=== PATIENT | female | born 1960 | race Asian ===

== ENCOUNTER → 2022-06-05 10:24 | Outpatient (CLI) | payer OTHER, SELFPAY ==
--- NOTE | ~2022-06-05 | DEXA_ITS ---
Bone Density Report Name: KOTA ALBA Age: 61 Sex: Female Ethnicity: Date of : 1960 Indication: postmenopausal; screening for osteoporosis; Referring Provider: Jeff, Bruno Study: Bone densitometry was performed. Exam Date: June 05, 2022 Accession number: [id number] Bone Density: Region BMD T-score Z-score Classification AP Spine (L1-L4) 0.913 -1.2 0.5 Osteopenia Femoral Neck (Left) 0.798 -0.5 1.0 Normal Total Hip (Left) 0.936 0.0 1.1 Normal Femoral Neck (Right) 0.756 -0.8 0.6 Normal Total Hip (Right) 0.885 -0.5 0.7 Normal Total Hip Mean 0.911 -0.3 0.9 Normal World Health Organization criteria for BMD impression classify patients as: Normal (T-score at or above -1.0), Osteopenia (T-score between -1.0 and -2.5), or Osteoporosis (T-score at or below -2.5). 10-year Fracture Risk(1): Major Osteoporotic Fracture 4.0% Hip Fracture 0.2% Reported Risk Factors: [place] (), Neck BMD=0.756, BMI=29.6 (1) FRAX(R) Version 3.08. Fracture probability calculated for an untreated patient. Fracture probability may be lower if the patient has received treatment. Clinical Information Provided by Patient: Has used the following medications: Vitamin D, occasional MTV Patient maximum height was 62 Menopause Age: 48 No regular weight bearing exercise Does not regularly consume dairy products Drinks caffeinated beverages Onset of menses at age 15 Number of children 2 Impression: The patient has low bone mass, based on the Total Spine T-score. The patient has an estimated ten-year risk of hip fracture of 0.2% and an estimated ten-year risk of major fracture of 4%, based on the WHO FRAX algorithm. Discussion: BONE DENSITY IS LOW AT ONE OR MORE SKELETAL SITES. This patient's lowest T-score is low at one or more skeletal sites. It meets the World Health Organization's (WHO) criteria for ?low bone mass? (T-score between -1.0 and -2.5). The patient's 10-year risk of fracture as calculated by FRAX is less than the threshold where pharmacological therapy is recommended by the National Osteoporosis Foundation (NOF). However, all treatment decisions require clinical judgment and consideration of individual patient factors, including patient preferences, comorbidities, previous drug use, risk factors not captured in the FRAX model (e.g., frailty, falls, vitamin D deficiency, increased bone turnover, interval significant decline in bone density) and possible under or overestimation of fracture risk by FRAX. The patient should follow a healthful lifestyle (good nutrition with adequate calcium and vitamin D, and appropriate weight-bearing exercise). Follow-Up: Consider repeating this study in 2 to 3 years to reassess this patient's status, or sooner if there is some new clinical indication.
--- NOTE | ~2022-06-05 | MM_ITS ---
EXAMINATION: MM screening betty BI w joanne HISTORY: Screening mammogram TECHNIQUE: Craniocaudal and mediolateral oblique 3-D tomosynthesis images were obtained and synthetic 2-D images were generated. CAD analysis was submitted and interpreted. COMPARISON: No prior mammogram is available for comparison at this institution. BREAST PARENCHYMAL COMPOSITION: There are scattered areas of fibroglandular density. FINDINGS: No suspicious mass, calcification, or architectural distortion are identified in either yamila ast to suggest malignancy. IMPRESSION: 1. No mammographic evidence of malignancy. 2. Recommend routine screening mammography in one year. 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
== END ==
PROVIDERS: PCP Internal Medicine; Visit Provider Internal Medicine
DX: Z12.31 Encounter for screening mammogram for malignant neoplasm of breast (principal); Z78.0 Asymptomatic menopausal state; M81.0 Age-related osteoporosis without current pathological fracture; M85.88 Other specified disorders of bone density and structure, other site
CPT/HCPCS: 77063; 77067; 77080

== ENCOUNTER → 2023-02-03 10:05 | Outpatient (CLI) | payer OTHER, SELFPAY ==
--- NOTE | ~2023-02-03 | US_ITS ---
Thyroid ultrasound. Clinical History: Hypothyroidism Findings: Real-time sonography of the thyroid gland was performed. The right lobe measures 5.0 x 1.8 x 1.7 cm. The left lobe measures 4.8 x 1.4 x 1.4 cm. The isthmus is 3 mm in AP diameter. No thyroid nodule identified. Impression: No significant abnormality seen. Reviewed, dictated and finalized at location . Impression: No significant abnormality seen.
== END ==
PROVIDERS: PCP Internal Medicine; Visit Provider Internal Medicine
DX: E03.9 Hypothyroidism, unspecified (principal)
CPT/HCPCS: 76536

== ENCOUNTER 2023-06-01 02:23 | Day surgery (SDC) | payer OTHER, SELFPAY ==
[2023-05-15 09:24] VITALS: BMI 26.4
--- NOTE | 2023-05-29 08:53 | SUR.PREOP ---
Patient called regarding upcoming procedure. Message left on patient's voicemail regarding preop instructions, appointment times, and procedure prep.
--- NOTE | 2023-05-29 14:26 | PM.HPGS ---
History of Present Illness History of Present Illness Consent: Risks, benefits, and alternatives have been discussed and questions answered. Patient agrees to proceed with procedure. Chief complaint: HX colon cancer Narrative: Breanna Galan is a 62 year old female Referred for colon cancer screening. She has a history of colon cancer which had been resected several years ago. Review of Systems Review of Systems: All systems reviewed & are unremarkable except as noted in HPI and below PMFSH Social History Social History Living arrangements: with family Spiritual care concerns: No Meds Home Medications and Allergies Home Medications Medication Instructions Recorded Confirmed Type aspirin 81 mg capsule 81 mg PO DAILY 05/15/23 06/01/23 History dapagliflozin propanediol 10 mg 10 mg PO DAILY 05/15/23 06/01/23 History tablet (Farxiga) ferrous sulfate 18 mg PO DAILY 05/15/23 06/01/23 History gabapentin 300 mg tablet 300 mg PO TID 05/15/23 06/01/23 History icosapent ethyl 1 gram capsule 2 g PO BID 05/15/23 06/01/23 History (Vascepa) lisinopril 10 mg tablet 10 mg PO DAILY 05/15/23 06/01/23 History metformin 500 mg tablet,extended 500 mg PO BID 05/15/23 06/01/23 History release 24 hr pravastatin 40 mg tablet 40 mg PO DAILY 05/15/23 06/01/23 History semaglutide 0.25 mg or 0.5 mg (2 0.5 mg subcut WEEKLY 05/15/23 06/01/23 History mg/3 mL) subcutaneous pen injector (Ozempic) Allergies Allergy/AdvReac Type Severity Reaction Status Date / Time No Known Allergies Allergy Verified 06/01/23 06:46 Exam Resp: Auscultation: clear to auscultation bilaterally Cardio: Rate: regular rate Rhythm: regular rhythm GI: GI Palp: Yes Soft to palpation and No Tenderness to palpation present (GI) Assessment and Plan Assessment and plan (1) Colon cancer screening: Code(s): Z12.11 - Encounter for screening for malignant neoplasm of colon Status: Acute Assessment and Plan: Colonoscopy with possible biopsy or polypectomy or cautery or injection of substances.
[2023-06-01 06:39] VITALS: BP 133/86; PULSE 65; RESP 16; TEMP 36.1; O2SAT 100; BMI 26.6
[2023-06-01] MEDS: LACTATED RINGERS 1,000 ML 150 ML IV CONT (07:04)
[2023-06-01 07:06] LABS: Glucose Point of Care 126 mg/dl (65-105)
--- NOTE | 2023-06-01 07:25 | P.PNAN_ITS ---
Anes - Initial Pre Proc Eval Procedure: Operation Date: 06/01/23 08:00 Proposed Procedures p Colonoscopy - William Rivas MD Date/Time: 06/01/23 07:25 Surgeon: William Rivas MD Pre Op Diagnosis: HX colon cancer Patient Data Age: 62 Gender: F Height: 1.65 m Weight: 72.5 kg Last Vital Signs Temp 96.9 F L 06/01/23 06:39 Pulse 65 06/01/23 06:39 Resp 16 06/01/23 06:39 BP 133/86 06/01/23 06:39 Pulse Ox 100 06/01/23 06:39 O2 Del Method Room Air 06/01/23 06:39 Allergies Allergy/AdvReac Type Severity Reaction Status Date / Time No Known Allergies Allergy Verified 06/01/23 06:46 Home Medications Medication Instructions Recorded Confirmed Type aspirin 81 mg capsule 81 mg PO DAILY 05/15/23 06/01/23 History dapagliflozin propanediol 10 mg 10 mg PO DAILY 05/15/23 06/01/23 History tablet (Farxiga) ferrous sulfate 18 mg PO DAILY 05/15/23 06/01/23 History gabapentin 300 mg tablet 300 mg PO TID 05/15/23 06/01/23 History icosapent ethyl 1 gram capsule 2 g PO BID 05/15/23 06/01/23 History (Vascepa) lisinopril 10 mg tablet 10 mg PO DAILY 05/15/23 06/01/23 History metformin 500 mg tablet,extended 500 mg PO BID 05/15/23 06/01/23 History release 24 hr pravastatin 40 mg tablet 40 mg PO DAILY 05/15/23 06/01/23 History semaglutide 0.25 mg or 0.5 mg (2 0.5 mg subcut WEEKLY 05/15/23 06/01/23 History mg/3 mL) subcutaneous pen injector (Ozempic) Laboratory Tests 06/01/23 06:55 POC Capillary Glucose 126 H mg/dl (65-105) Patient hx anesthesia problems: none Family hx anesthesia problems: none Results Review: All pre-operative results and documents have been reviewed as part of the pre- operative evaluation. PMFSH Social History Social History Living arrangements: with family Spiritual care concerns: No Anes - Eval Final PreProcedure Day of Procedure 06/01/23 07:25 Patient weight: normal Heart: regular rate and rhythm Lungs: clear to auscultation Airway: Mallampati scale class II Neurological: alert and oriented Last oral intake: >/= 8 hours ASA classification: III Emergent: no Anesthetic plan: proceed Anesthesia type and monitoring: general GIVS and standard monitoring Results Review: All pre-operative results and documents have been reviewed as part of the pre- operative evaluation. Informed Consent: The patient's anesthetic plan and its attendant risks and benefits were discussed with the patient/family/POA. Questions were solicited and answers provided to the satisfaction of the patient/family/POA.
[2023-06-01 08:10] VITALS: BP 82/53; PULSE 69; RESP 20; O2SAT 99
[2023-06-01 08:20] VITALS: BP 92/92; PULSE 66; RESP 19; O2SAT 97
[2023-06-01 08:30] VITALS: BP 98/61; PULSE 60; RESP 19; O2SAT 99
== END 2023-06-01 08:41 | disposition home or self-care (01) ==
PROVIDERS: PCP Internal Medicine; Visit Provider Internal Medicine Gastroenterology
PROC: 0DJD8ZZ Inspection of Lower Intestinal Tract, Via Natural or Artificial Opening Endoscopic (ICD-10-PCS; CPT 45378; principal; 2023-06-01 08:00)
DX: Z12.11 Encounter for screening for malignant neoplasm of colon (principal); Z85.038 Personal history of other malignant neoplasm of large intestine; K63.89 Other specified diseases of intestine
CPT/HCPCS: 45378; 82948; J2704; J7120

== ENCOUNTER → 2023-06-08 09:41 | Outpatient (CLI) | payer OTHER, SELFPAY ==
--- NOTE | ~2023-06-08 | DEXA_ITS ---
Bone Density Report Name: KOTA ALBA Age: 62 Sex: Female Ethnicity: Date of : 1960 Indication: osteopenia; rheumatoid arthritis; postmenopausal Referring Provider: JeffBruno Study: Bone densitometry was performed. Exam Date: June 08, 2023 Accession number: [id number] Bone Density: Region BMD T-score Z-score Classification AP Spine (L1-L4) 0.894 -1.4 0.4 Osteopenia Femoral Neck (Left) 0.765 -0.8 0.7 Normal Total Hip (Left) 0.936 0.0 1.2 Normal Femoral Neck (Right) 0.766 -0.8 0.8 Normal Total Hip (Right) 0.890 -0.4 0.8 Normal Total Hip Mean 0.913 -0.2 1.0 Normal World Health Organization criteria for BMD impression classify patients as: Normal (T-score at or above -1.0), Osteopenia (T-score between -1.0 and -2.5), or Osteoporosis (T-score at or below -2.5). 10-year Fracture Risk(1): Major Osteoporotic Fracture 5.3% Hip Fracture 0.3% Reported Risk Factors: [place] (), Neck BMD=0.766, BMI=28.8, rheumatoid arthritis (1) FRAX(R) Version 3.08. Fracture probability calculated for an untreated patient. Fracture probability may be lower if the patient has received treatment. Previous Exams: Region Exam Age BMD T-score BMD Change BMD Change Date g/cm2 vs Baseline vs Previous AP Spine(L1-L4) 06/08/2023 62 0.894 -1.4 -0.020 -0.020 06/05/2022 61 0.913 -1.2 Total Hip(Left) 06/08/2023 62 0.936 0.0 0.000 0.000 06/05/2022 61 0.936 0.0 Total Hip(Right) 06/08/2023 62 0.890 -0.4 0.004 0.004 06/05/2022 61 0.885 -0.5 *Denotes significance at 95% confidence level, LSC for AP Spine = 0.022 g/cm2, LSC for Total Hip = 0.027 g/cm2 Clinical Information Provided by Patient: Has rheumatoid arthritis Patient maximum height was 62.5 Menopause Age: 48 No regular weight bearing exercise Does not regularly consume dairy products Drinks caffeinated beverages Onset of menses at age 15 Number of children 2 Impression: The patient has low bone mass, based on the Total Spine T-score. The patient has an estimated ten-year risk of hip fracture of 0.3% and an estimated ten-year risk of major fracture of 5.3%, based on the WHO FRAX algorithm. No significant bone loss was observed. Discussion: BONE DENSITY IS LOW AT ONE OR MORE SKELETAL SITES. This patient's lowest T-score is low at one or more skeletal sites. It meets the World Health Organization's (W
--- NOTE | ~2023-06-08 | MM_ITS ---
EXAMINATION: MM screening betty BI w joanne HISTORY: Screening TECHNIQUE: Craniocaudal and mediolateral oblique 3-D tomosynthesis images were obtained and synthetic 2-D images were generated. CAD analysis was submitted and interpreted. COMPARISON: 06/05/2022 BREAST PARENCHYMAL COMPOSITION: There are scattered areas of fibroglandular density. FINDINGS: There is no evidence of suspicious mass, calcification, or architectural distortion to sugg est malignancy in either breast. There has been no suspicious interval change. IMPRESSION: 1. No mammographic evidence of malignancy. 2. Recommend routine screening mammography in one year. BI-RADS Category 1: Negative Reviewed, dictated and finalized at location A. 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
== END ==
PROVIDERS: PCP Internal Medicine; Visit Provider Internal Medicine
DX: Z12.31 Encounter for screening mammogram for malignant neoplasm of breast (principal); Z13.820 Encounter for screening for osteoporosis; M85.88 Other specified disorders of bone density and structure, other site
CPT/HCPCS: 77063; 77067; 77080

== ENCOUNTER 2024-03-08 09:06 | Outpatient (CLI) | payer OTHER, SELFPAY ==
--- NOTE | ~2024-03-08 | US_ITS ---
EXAMINATION: US right upper quadrant DATE: 03/08/2024 09:21 INDICATION: Chronic viral hepatitis B. TECHNIQUE: Multiple grayscale and Doppler ultrasound images of the abdomen were obtained. COMPARISON: None FINDINGS: The visualized portions of the head, body, and tail of the pancreas are normal. The liver i s normal without focal lesion. No liver surface nodularity. There is normal flow in main portal vein. The gallbladder is normal in size. No gallstones or gallbladder wall thickening. There is no sonogra phic Bee's sign. The common duct is normal and measures 5 mm. IMPRESSION: 1. Normal right upper quadrant ultrasound. Reviewed, dictated and finalized at location A.
== END 2024-03-08 09:07 | disposition home or self-care (01) ==
LOC: MICIMG 09:08
DX: B18.1 Chronic viral hepatitis B without delta-agent (principal)
CPT/HCPCS: 76705

== ENCOUNTER 2024-08-18 12:33 | Outpatient (CLI) | payer OTHER, SELFPAY ==
--- NOTE | ~2024-08-18 | MM_ITS ---
EXAMINATION: MM screening betty BI w joanne HISTORY: Screening TECHNIQUE: Craniocaudal and mediolateral oblique 3-D tomosynthesis images were obtained and synthetic 2-D images were generated. CAD analysis was submitted and interpreted. COMPARISON: Comparison to multiple prior studies sequentially, with oldest reviewed study dated 01/2022. BREAST PARENCHYMAL COMPOSITION: Not dense: There are scattered areas of fibroglandular density. FINDINGS: There is no evidence of suspicious mass, calcification, or architectural distortion to sugg est malignancy in either breast. There has been no suspicious interval change. IMPRESSION: 1. No mammographic evidence of malignancy. 2. Recommend routine screening mammography in one year. 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
== END 2024-08-18 12:34 | disposition home or self-care (01) ==
LOC: MICIMG 12:35
PROVIDERS: PCP Nurse Practitioner; Visit Provider Nurse Practitioner
DX: Z12.31 Encounter for screening mammogram for malignant neoplasm of breast (principal)
CPT/HCPCS: 77063; 77067